=== PATIENT | female | born 2005 | race Caucasian/White ===

== ENCOUNTER 2023-01-14 18:56 | Emergency (ER) | payer OTHER ==
[~2023-01-14] VITALS: Ht 157.5 cm; Wt 74.9 kg
[2023-01-14 21:13] VITALS: BP 126/65
[2023-01-14 22:05] LABS: BASOPHILS % 0.4 % (0.0-2.0); EOSINOPHILS % 7.3 % (0.0-5.0); HEMATOCRIT. 38.6 % (36.0-48.0); HEMOGLOBIN. 12.6 g/dL (12.0-16.0); LYMPHOCYTES % 26.2 % (20.0-50.0); MEAN CORPUSCULAR HEMOGLOBIN 25.1 pg (28.0-32.0); MEAN CORPUSCULAR VOLUME 76.6 fL (81.0-99.0); MEAN PLATELET VOLUME 8.6 fl (7.4-10.4); MONOCYTES % 5.3 % (2.0-8.0); NEUTROPHILS % 60.8 % (40.0-76.0); PLATELET 400 x1000/uL (130-400); RED BLOOD CELL COUNT 5.03 mill/uL (4.2-5.4)
[2023-01-14 22:13] LABS: CHLORIDE 104 mEq/L (98-107)
[2023-01-14 22:38] LABS: B-HCG QUANTITATIVE 3116 mIU/mL (<3)
== END 2023-01-14 23:08 | disposition home or self-care (01) ==
LOC: ER 18:56
DX: O46.91 Antepartum hemorrhage, unspecified, first trimester (principal); Z3A.01 Less than 8 weeks gestation of pregnancy
CPT/HCPCS: 36415; 76801; 80053; 84702; 85025; 86850; 86900; 99284